=== PATIENT | female | born 1995 | race American Indian/Alaskan Native ===

== ENCOUNTER 2018-10-18 20:20 | Outpatient (CLI) | payer OTHER ==
[2018-10-18] MEDS ORDERED: LACTATED RINGERS 1,000 ML IV ONE (21:15)
[2018-10-18 21:45] LABS: Bilirubin,Urine NEG (Negative); Blood,Urine NEG (Negative); Color,Urine Yellow (Yellow); Mucus,Urine 1+ /HPF; Protein,Urine <15 mg/dL mg/dL (Negative); Urobilinogen,Urine < 2.0 mg/dL (<2.0)
[2018-10-18 22:17] VITALS: BP 110/74
== END 2018-10-18 22:55 | disposition home or self-care (01) ==
LOC: TRG 20:20
PROVIDERS: ATTEND Obstetrics & Gynecology
DX: O26.893 Other specified pregnancy related conditions, third trimester (principal); R10.2 Pelvic and perineal pain; Z3A.34 34 weeks gestation of pregnancy
CPT/HCPCS: 59025; 81001

== ENCOUNTER 2020-03-12 17:08 | Outpatient (CLI) | payer SELFPAY ==
[2020-03-12] MEDS ORDERED: LACTATED RINGERS 1,000 ML IV SCH (17:30)
[2020-03-12 17:35] VITALS: BP 112/71
[2020-03-12 17:53] LABS: Bacteria,Urine 1+ /HPF (Negative); Bilirubin,Urine NEG (Negative); Blood,Urine NEG (Negative); Color,Urine Yellow (Yellow); Mucus,Urine 1+ /HPF; Protein,Urine <15 mg/dL mg/dL (Negative); Urobilinogen,Urine < 2.0 mg/dL (<2.0)
[2020-03-12] MEDS ORDERED: TERBUTALINE 1 MG/1 ML INJ SUB-Q SCH (18:00)
== END 2020-03-12 18:36 | disposition home or self-care (01) ==
LOC: TRG 17:08 → APU 17:11 → TRG 18:36
PROVIDERS: ATTEND Obstetrics & Gynecology
DX: O36.8130 Decreased fetal movements, third trimester, not applicable or unspecified (principal); O26.892 Other specified pregnancy related conditions, second trimester; R10.9 Unspecified abdominal pain; Z3A.28 28 weeks gestation of pregnancy
CPT/HCPCS: 59025; 81001